=== PATIENT | female | born 1955 | race Caucasian/White ===

== ENCOUNTER → 2017-11-28 16:37 | Outpatient (CLI) | payer BC ==
[2013-03-07 13:52] VITALS: BMI 28.7
[~2017-11-28 16:37] MED LIST: CRESTOR5 MG PO
== END | disposition home or self-care (01) ==
LOC: D.MAMMO 11-22 13:15
DX: Z12.31 Encounter for screening mammogram for malignant neoplasm of breast (principal)

== ENCOUNTER → 2018-10-22 07:09 | Outpatient (CLI) | payer BC, OTHER ==
[2013-03-07 13:52] VITALS: BMI 28.7
[2018-10-22 08:45] LABS: ALBUMIN 3.5 g/dL (3.4-5.0); BILIRUBIN - DIRECT 0.1 mg/dL (0.00-0.30); BILIRUBIN - INDIRECT 0.27 mg/dL (0.00-1.00); BILIRUBIN - TOTAL 0.37 mg/dL (0.2-1.3); PROTEIN - SERUM 6.8 g/dL (6.4-8.2)
== END | disposition home or self-care (01) ==
LOC: D.US 10-15 07:30
PROVIDERS: Internal Medicine Gastroenterology
DX: R10.9 Unspecified abdominal pain (principal); R11.0 Nausea

== ENCOUNTER → 2019-04-08 07:37 | Outpatient (CLI) | payer BC, OTHER ==
[2013-03-07 13:52] VITALS: BMI 28.7
[2019-04-08 09:19] LABS: ALBUMIN 3.5 g/dL (3.4-5.0); BILIRUBIN - DIRECT 0.11 mg/dL (0.00-0.30); BILIRUBIN - INDIRECT 0.34 mg/dL (0.00-1.00); BILIRUBIN - TOTAL 0.45 mg/dL (0.2-1.3); PROTEIN - SERUM 6.7 g/dL (6.4-8.2)
== END | disposition home or self-care (01) ==
LOC: D.US 07:37
PROVIDERS: ATTEND Internal Medicine Gastroenterology
DX: R16.0 Hepatomegaly, not elsewhere classified (principal); K76.9 Liver disease, unspecified

== ENCOUNTER 2019-08-06 09:00 | Outpatient (CLI) | payer BC, OTHER ==
[2013-03-07 13:52] VITALS: BMI 28.7
== END 2019-08-06 10:00 | disposition home or self-care (01) ==
LOC: D.MAMMO 09:00
PROVIDERS: ATTEND Family Medicine
DX: Z12.31 Encounter for screening mammogram for malignant neoplasm of breast (principal)